=== PATIENT | female | born 1935 | race Caucasian/White ===

== ENCOUNTER 2022-11-29 10:35 | Outpatient (CLI) | payer MEDICARE, OTHER, SELFPAY | END 2022-11-29 10:36 | disposition home or self-care (01) | PROVIDERS: PCP Internal Medicine; Visit Provider Family Medicine | DX: M54.16 Radiculopathy, lumbar region (principal); M48.062 Spinal stenosis, lumbar region with neurogenic claudication; M51.36 Other intervertebral disc degeneration, lumbar region | CPT/HCPCS: 62323; J0702; Q9966 ==

== ENCOUNTER 2023-06-27 10:42 | Outpatient (CLI) | payer MEDICARE, OTHER, SELFPAY | END 2023-06-27 10:43 | disposition home or self-care (01) | LOC: INJ CL 10:43 | PROVIDERS: PCP Internal Medicine; Visit Provider Family Medicine | DX: M54.16 Radiculopathy, lumbar region (principal); M48.062 Spinal stenosis, lumbar region with neurogenic claudication; M51.36 Other intervertebral disc degeneration, lumbar region | CPT/HCPCS: 62323; J0702; Q9966 ==

== ENCOUNTER 2023-09-22 09:54 | Outpatient (CLI) | payer MEDICARE, OTHER, SELFPAY | END 2023-09-22 09:55 | disposition home or self-care (01) | LOC: AMB 09-23 15:45 | PROVIDERS: PCP Internal Medicine; Visit Provider Family Medicine | DX: R53.1 Weakness (principal) | CPT/HCPCS: A0425; A0427 ==

== ENCOUNTER 2023-10-24 09:56 | Outpatient (CLI) | payer MEDICARE, OTHER, SELFPAY | END 2023-10-24 09:57 | disposition home or self-care (01) | LOC: INJ CL 09:58 | PROVIDERS: PCP Internal Medicine; Visit Provider Family Medicine | DX: M54.16 Radiculopathy, lumbar region (principal); M51.36 Other intervertebral disc degeneration, lumbar region | CPT/HCPCS: 62323; J0702; Q9966 ==

== ENCOUNTER 2024-01-23 10:58 | Outpatient (CLI) | payer MEDICARE, OTHER, SELFPAY | END 2024-01-23 10:59 | disposition home or self-care (01) | LOC: INJ CL 10:59 | PROVIDERS: PCP Internal Medicine; Visit Provider Family Medicine | DX: M54.16 Radiculopathy, lumbar region (principal); M51.36 Other intervertebral disc degeneration, lumbar region | CPT/HCPCS: 62323; J0702; Q9966 ==

== ENCOUNTER 2024-07-09 11:18 | Outpatient (CLI) | payer MEDICARE, OTHER, SELFPAY | END 2024-07-09 11:19 | disposition home or self-care (01) | LOC: INJ CL 11:18 | PROVIDERS: PCP Internal Medicine; Visit Provider Family Medicine | DX: M54.16 Radiculopathy, lumbar region (principal); M51.36 Other intervertebral disc degeneration, lumbar region | CPT/HCPCS: 62323; J0702; Q9966 ==

== ENCOUNTER 2024-12-13 11:14 | Outpatient (CLI) | payer MEDICARE, OTHER, SELFPAY | END 2024-12-13 11:15 | disposition home or self-care (01) | LOC: INJ CL 11:16 | PROVIDERS: PCP Internal Medicine; Visit Provider Family Medicine | DX: M54.16 Radiculopathy, lumbar region (principal); M51.369 Other intervertebral disc degeneration, lumbar region without mention of lumbar back pain or lower extremity pain | CPT/HCPCS: 62323; J0702; Q9966 ==

== ENCOUNTER 2025-07-08 09:27 | Outpatient (CLI) | payer MEDICARE, OTHER, SELFPAY | END 2025-07-08 09:28 | disposition home or self-care (01) | LOC: INJ CL 09:27 | PROVIDERS: PCP Internal Medicine; Visit Provider Family Medicine | DX: M54.16 Radiculopathy, lumbar region (principal); M51.369 Other intervertebral disc degeneration, lumbar region without mention of lumbar back pain or lower extremity pain | CPT/HCPCS: 62323; J0702; Q9966 ==